=== PATIENT | female | born 1990 ===

== ENCOUNTER 2018-08-13 09:04 | Inpatient (IN) | payer OTHER ==
[~2018-08-13] VITALS: Ht 157.5 cm; Wt 2.7 kg
== END 2018-08-16 18:36 | disposition home or self-care (01) | DRG 807 ==
LOC: LDR 09:04 → SURG-SUITE 09:04 → LDR 13:56 → OB/GYN 08-14 08:43 → SURG-SUITE 08-14 09:10
PROVIDERS: ADMIT Obstetrics & Gynecology
PROC: 3E0P7VZ Introduction of Hormone into Female Reproductive, Via Natural or Artificial Opening (ICD-10-PCS; 2018-08-13)
PROC: 3E033VJ Introduction of Other Hormone into Peripheral Vein, Percutaneous Approach (ICD-10-PCS; 2018-08-13)
PROC: 4A1HXCZ Monitoring of Products of Conception, Cardiac Rate, External Approach (ICD-10-PCS; 2018-08-13)
PROC: 10E0XZZ Delivery of Products of Conception, External Approach (ICD-10-PCS; principal; 2018-08-14)
DX: O60.14X0 Preterm labor third trimester with preterm delivery third trimester, not applicable or unspecified (principal); Z37.0 Single live birth; Z3A.35 35 weeks gestation of pregnancy